=== PATIENT | female | born 1955 | race Caucasian/White ===

== ENCOUNTER 2017-03-23 20:31 | Emergency (ER) | payer BC ==
[2017-03-23 20:46] VITALS: BP 156/78
--- NOTE | 2017-03-23 20:53 | EDM.PDOC ---
ED HPI GENERAL MEDICAL PROBLEM - General Chief Complaint: Abdominal Pain Stated Complaint: ABDOMINAL PAIN Time Seen by Provider: 03/23/17 20:52 Source of Information: Reports: Patient History Limitations: Reports: No Limitations - History of Present Illness INITIAL COMMENTS - FREE TEXT/NARRATIVE: 61-year-old female presents to the ED with acute onset of right danny-abdominal pain. She states she can feel a lump on her abdomen which she's noted off and on in the past and the pain is directly underneath this. Pain came on about 2 hours ago well standing. Normal supper i.e. a sandwich about 5:30 6:00. Pain is not bad enough to make her vomit. She states that she pushes on it she can walk near normal. She's had no previous abdominal surgery. 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 She used to be on Plavix but is no longer on this. She is only on aspirin. Denies any abdominal wall trauma. Onset: Today Onset Date: 03/23/17 Onset Time: 19:00 Duration: Hour(s): Location: Reports: Abdomen (Right mid hemiabdomen.). Denies: Radiates to Quality: Reports: Ache, Other (Feels a palpable lump in this area and the pain is directly underneath this.) Severity: Moderate (Rates it as 5 out of 10.) Improves with: Reports: Rest Worsens with: Reports: Movement Context: Reports: Other (Came on spontaneously.). Denies: Activity, Exercise, Lifting, Sick Contact, Trauma Associated Symptoms: Reports: No Other Symptoms Treatments BALANCE WEIGHER: Reports: Other (see below) (None.) Right Abdominal Pain Score (Numeric/FACES): 7 - Related Data Allergies Allergy/AdvReac Type Severity Reaction Status Date / Time No Known Allergies Allergy Verified 05/08/14 06:47 Home Meds: Home Meds Calcium Carbonate [Calcium] 600 mg PO DAILY 11/29/14 [History] Fish Oil/[place]-3 Fatty Acids [Fish Oil] 1,200 mg PO DAILY 11/29/14 [History] LORazepam [Ativan] 2 mg PO BEDTIME 11/29/14 [History] Losartan [Cozaar] 50 mg PO DAILY 11/29/14 [History] Multivitamins 1 each PO DAILY 11/29/14 [History] Oxybutynin [Oxybutynin ER] 10 mg PO BID 11/29/14 [History] Perphenazine 16 mg PO BEDTIME 11/29/14 [History] QUEtiapine [SEROquel] 100 mg PO BEDTIME 11/29/14 [History] carBAMazepine [Carbamazepine] 100 mg PO BEDTIME 11/29/14 [History] Aspirin [Halfprin] 81 mg PO DAILY 03/23/17 [History] Methylcellulose [Fiber] 500 mg PO DAILY 03/23/17 [History] atorvaSTATin [Lipitor] 20 mg PO BEDTIME 03/23/17 [History] Past Medical History Genitourinary History: Reports: Other (See Below) (Urge incontinence.) Neurological History: Reports: CVA (With right-sided hemiparesis with persistent weakness particularly lower extremity and upper extremity. Speech is near normal.) Psychiatric History: Reports: Psych Hospitalization(s), Schizophrenia (Fairly patient has a pre-existing psychiatric illness which included auditory hallucinations with a diagnosis of schizophrenia. She is therefore on perphenazine Seroquel and Tegretol for behavioral management.) Social & Family History - Tobacco Use Smoking Status *Q: Current Every Day Smoker Years of Tobacco use: 41 - Recreational Drug Use Recreational Drug Use: No - Living Situation & Occupation Living situation: Reports: Occupation: Disabled ED ROS GENERAL - Review of Systems Review Of Systems: See Below Constitutional: Reports: No Symptoms HEENT: Reports: No Symptoms Respiratory: Reports: No Symptoms Cardiovascular: Reports: No Symptoms Endocrine: Reports: No Symptoms GI/Abdominal: Reports: No Symptoms, Constipation. Denies: Diarrhea : Reports: Incontinence (Urge incontinence.) Skin: Reports: No Symptoms Neurological: Reports: Gait Disturbance Psychiatric: Reports: No Symptoms (Due to previous CVA.) Hematologic/Lymphatic: Reports: No Symptoms ED EXAM, GI/ABD - Physical Exam Exam: See Below Exam Limited By: Other ( does a lot of answering for her questions. She is able to answer most questions but his slow in her speech and responses.) General Appearance: Alert, WD/WN, No Apparent Distress Eyes: Bilateral: Normal Appearance (No jaundice.) Head: Atraumatic, Normocephalic Neck: Normal Inspection, Supple, Non-Tender, Full Range of Motion. No: Lymphadenopathy (R) Respiratory/Chest: No Respiratory Distress, Lungs Clear, Normal Breath Sounds, No Accessory Muscle Use, Respiratory Distress (Mild tachypnea due to anxiety.) Cardiovascular: Normal Peripheral Pulses, Regular Rate, Rhythm, No Edema, No Gallop, No Murmur GI/Abdominal Exam: Normal Bowel Sounds, Soft, Tender (There is a tender area adjacent to the rectus abdominis muscle inferior to the umbilicus just lateral to it with a palpable lump. This is only about 2-1/2 cm in size. It is mild to moderately tender. It has the suggestion of a spigelian hernia. She's had no previous abdominal surgeries. I can palpate stool however throughout the colon underneath this area as well.) Back Exam: Normal Inspection, Full Range of Motion. No: CVA Tenderness (L), CVA Tenderness (R) Extremities: Normal Inspection, Normal Range of Motion, Non-Tender, No Pedal Edema Neurological: Alert, Oriented, CN II-XII Intact, Normal Cognition, Other (She has hyperreflexia on the right side with right-sided weakness of arm and leg i.e. right-sided hemiparesis post CVA 2 years ago.). No: Normal Gait Psychiatric: Flat Affect Skin Exam: Warm, Dry, Intact, Normal Color Course - Vital Signs Last Recorded V/S: Last Vital Signs Temp 36.4 C 03/23/17 20:45 Pulse 80 03/23/17 20:45 Resp 20 03/23/17 20:45 BP 156/78 H 03/23/17 20:45 Pulse Ox 96 03/23/17 20:45 - Orders/Labs/Meds Orders: Active Orders 24 hr Category Date Time Status Peripheral IV Care [RC] . DIRECTED Care 03/23/17 20:57 Active Abdomen Pelvis wo Cont [CT] Stat Exams 03/23/17 20:59 Taken Peripheral IV Insertion Adult [OM.PC] Stat Oth 03/23/17 20:57 Ordered Labs: Laboratory Tests 03/23/17 03/23/17 Range/Units 21:11 21:11 WBC 9.37 (3.98-10.04) K/mm3 RBC 4.29 (3.98-5.22) M/mm3 Hgb 12.9 (11.2-15.7) gm/L Hct 38.9 (34.1-44.9) % MCV 90.7 (79.4-94.8) fl MCH 30.1 (25.6-32.2) pg MCHC 33.2 (32.2-35.5) g/dl RDW Std Deviation 46.2 (36.4-46.3) fL Plt Count 348 (182-369) K/mm3 MPV 9.9 (9.4-12.3) fl Neutrophils % (Manual) 63 H (40-60) % Band Neutrophils % 0 (0-10) % Lymphocytes % (Manual) 24 (20-40) % Atypical Lymphs % 2 % Monocytes % (Manual) 9 (2-10) % Eosinophils % (Manual) 1 (0.7-5.8) % Basophils % (Manual) 1 (0.1-1.2) Platelet Estimate Adequate Plt Morphology Comment Normal RBC Morph Comment Normal Sodium 143 (136-145) mEq/L Potassium 4.3 (3.5-5.1) mEq/L Chloride 107 (98-107) mEq/L Carbon Dioxide 23 (21-32) mEq/L Anion Gap 17.3 H (5-15) BUN 14 (7-18) mg/dL Creatinine 1.4 H (0.55-1.02) mg/dL Est Cr Clr Drug Dosing 33.80 mL/min Estimated GFR (MDRD) 38 (>60) mL/min BUN/Creatinine Ratio 10.0 L (14-18) Glucose 131 H (74-106) mg/dL Calcium 9.7 (8.5-10.1) mg/dL Total Bilirubin 0.2 (0.2-1.0) mg/dL AST 20 (15-37) U/L ALT 34 (14-59) U/L Alkaline Phosphatase 91 (46-116) U/L C-Reactive Protein < 0.2 (<1.0) mg/dL Total Protein 7.2 (6.4-8.2) g/dl Albumin 3.9 (3.4-5.0) g/dl Globulin 3.3 gm/dL Albumin/Globulin Ratio 1.2 (1-2) Amylase 41 (25-115) U/L Meds: Medications Discontinued Medications Generic Name Dose Route Start Last Admin Trade Name Freq PRN Reason Stop Dose Admin Hydromorphone HCl 0.5 mg 03/23/17 20:58 03/23/17 21:21 Dilaudid IVPUSH 03/23/17 20:59 0.5 mg ONETIME ONE Administration Magnesium Citrate 300 ml 03/23/17 22:10 03/23/17 22:23 Citrate Of Magnesia PO 03/23/17 22:11 300 ml ONETIME ONE Administration Magnesium Citrate Confirm 03/23/17 22:28 03/24/17 00:29 Citrate Of Magnesia Administered 03/23/17 22:29 Not Given Dose 296 ml .ROUTE .STK-MED ONE Metoclopramide HCl 7.5 mg 03/23/17 20:58 03/23/17 21:19 Reglan IVPUSH 03/23/17 20:59 7.5 mg ONETIME ONE Administration Sodium Chloride 10 ml 03/23/17 20:57 03/23/17 21:19 Saline Flush FLUSH 10 ml ASDIRECTED PRN Administration Keep Vein Open - Radiology Interpretation Free Text/Narrative:: 7-year-old female presents to the ED with a 2 hour history of a painful lump in her right mid abdomen. This appears to be adjacent to the umbilicus and slightly inferior to it. She states the lump has been there off and on in the past but she is mentioning to the doctor was no positive response. Tonight the pain came on and the pain is directly underneath this area. She can hold onto it and make it feel somewhat better to walk fully erect. On my examination there is approximately a 3 cm rounded mass that is somewhat painful in this area. Says the suspicion of a spiculated hernia. I can also palpate a good deal of stool however throughout the right hemicolon. Bowel gas sounds are normal she 's had no previous abdominal surgery. Decision made to just CT the abdomen and pelvis without contrast to see if I can identify a hernia in this area. In the meantime she will have a IV started. Will receive Dilaudid 0.5 mg IV and Reglan 7.5 mg IV for pain relief. Routine labs and urinalysis ordered. - Re-Assessments/Exams Free Text/Narrative Re-Assessment/Exam: 03/23/17 21:56 CT of the abdomen reveals no evidence of an abdominal wall hernia. There is a small fat-containing umbilical hernia. The entire right hemicolon and most of the transverse colon and descending colon are filled with stool. Therefore the palpable lump that she's experiencing is stool within the right hemicolon as I anticipated clinically. Of note there is also a fairly moderate sized hiatal hernia. Etiology just also comments that there is absent lung markings and small area of the medial basilar right lower lobe could be a pneumomediastinum or chronic pneumothorax. When I look at the CT clearly I do not demonstrate these findings. Treatment will be Citroma 8 ounces mixed with 5 ounces of juice of choice to provide bowel cleanse and then I'm going to suggest she stays on MiraLAX powder 17 g daily as the medication she is on are causing significant constipation problems. Departure - Departure Time of Disposition: 22:11 Disposition: Home, Self-Care 01 Condition: Fair Clinical Impression: Constipation by delayed colonic transit Abdominal pain Qualifiers: Abdominal location: right lower quadrant Qualified Code(s): R10.31 - Right lower quadrant pain - Discharge Information Instructions: Constipation, Adult, [id number], Abdominal Pain, Adult, Easy-to -Read Referrals: Derick Cabrera MD [Primary Care Provider] - Forms: ED Department Discharge Additional Instructions: Evaluation the emergency room tonight in regards to sudden onset of right danny- abdominal pain. This was strong and crampy in nature. Examination showed fairly active bowel sounds throughout the abdomen and palpable: On exam. Because she had felt a lump in this area in the past concern arose for possible hernia of the abdominal wall which would be rare because you've not had any previous abdominal surgeries. Sometimes a spigelian hernia can occur spontaneously. 4 CT of your abdomen was performed without any contrast. It identifies no evidence of an abdominal wall hernia. It does however reveal extensive constipation with stool throughout the entire colon particularly the right hemicolon. Treatment is therefore to take Citroma 10 ounces of medicine with 5-6 ounces of any kind of juice or Gatorade Powerade in the morning. This will take 1-2 hours to work in bowel off work for 5 times to provide bowel cleanse. Try and drink a couple glasses of water over the next hour or 2 after taking the Citroma to act as a flush. After this I would suggest using MiraLAX powder 17 g or 1 scoop every day to try and prevent constipation from occurring. Unfortunately the medications that you take perphenazine and Seroquel are strongly constipating. Follow-up with personal physician if any further problems occur. - My Orders Last 24 Hours: My Active Orders 03/23/17 20:57 Peripheral IV Care [RC] . DIRECTED Peripheral IV Insertion Adult [OM.PC] Stat 03/23/17 20:59 Abdomen Pelvis wo Cont [CT] Stat - Assessment/Plan Last 24 Hours: My Active Orders 03/23/17 20:57 Peripheral IV Care [RC] . DIRECTED Peripheral IV Insertion Adult [OM.PC] Stat 03/23/17 20:59 Abdomen Pelvis wo Cont [CT] Stat
[2017-03-23] MEDS ORDERED: Sodium Chloride 0.9% 10 ML Syringe FLUSH PRN (20:57)
[2017-03-23] MEDS ORDERED: HYDROmorphone 0.5 MG/0.5 ML Syringe IVPUSH ONE (20:58)
[2017-03-23] MEDS ORDERED: Metoclopramide 10 MG/2 ML SDV IVPUSH ONE (20:58)
[2017-03-23] MEDS ORDERED: Magnesium Citrate Solution 296 ML Bottle PO ONE (22:10)
[2017-03-23] MEDS ORDERED: Magnesium Citrate Solution 296 ML Bottle ONE (22:28)
--- NOTE | 2017-03-24 09:18 | CT ---
CT abdomen and pelvis Technique: Multiple axial sections were obtained from above the dome of the diaphragm inferiorly through the pubic symphysis. Intravenous and oral contrast not utilized. Findings: Small low-density lesion identified within the right kidney measuring approximately 7 mm most likely due to small cyst. Kidneys show no abnormal calcifications. Incidental extrarenal pelvis noted on the right side. No ureteral dilatation or ureteral stone is seen. Moderately large hiatal hernia is seen. Small amount of extrapleural air appears to be present next to the hiatal hernia within the right lung base of uncertain etiology. Noncontrast appearance of the liver and spleen appears within normal limits. Gallbladder contains no calcified gallstones. Adrenal glands show no nodule. Pancreas is within normal limits. Aorta shows atherosclerotic calcification which continues into the iliac vessels. No aneurysm is seen. No retroperitoneal adenopathy is identified. Mild increased stool is noted throughout the colon. No pelvic mass or adenopathy is seen. No free fluid or inflammatory change is seen within the abdomen or pelvis. Bone window settings were reviewed which show spondylolisthesis at L5-S1 with severe disc space narrowing at L5-S1. 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 Impression: 1. Small amount of extrapleural air next to a hiatal hernia within the right lung base. Uncertain as to etiology but this is most likely chronic. Limited noncontrast chest CT could be performed in one month to confirm stability. 2. Small cyst within the right kidney. 3. Moderately large hiatal hernia. 4. Increased stool within the colon and other incidental findings. Diagnostic code #3 I agree with preliminary report issued by [employer] ([facility] report finalized on 03/23/17, 11:09 PM Central Time)
== END 2017-03-23 22:29 | disposition home or self-care (01) ==
LOC: JD.ED 20:31
DX: K59.01 Slow transit constipation (principal); F17.210 Nicotine dependence, cigarettes, uncomplicated
CPT/HCPCS: 36415; 74176; 80053; 82150; 85025; 86140; 96374; 96375; 99284; A9270; J1170; J2765; J7050

== ENCOUNTER 2021-02-26 09:14 | Day surgery (SDC) | payer MEDICARE, OTHER ==
[2021-02-26] MEDS: Polymyxin B/Trimethoprim 10 ML Bottle EYELF SCH ×4 (10:36→11:57)
[2021-02-26] MEDS: Brimonidine 0.2% Ophth Soln 5 ML Bottle EYELF SCH ×4 (10:44→11:57)
[2021-02-26] MEDS: Phenylephrine 2.5% Ophth Soln 2 ML Bot EYELF SCH ×6 (10:47→11:39)
[2021-02-26] MEDS: Tropicamide 1% Ophth Soln 15 ML Bottle EYELF SCH ×4 (10:51→11:25)
--- NOTE | 2021-02-26 10:56 | PCM.PREANE ---
Preanesthetic Assessment - Procedure Proposed Procedure: Left Cataract Extraction with IOL. - Anesthesia/Transfusion/Family Hx Anesthesia History: Prior Anesthesia Without Reaction Family History of Anesthesia Reaction: No Transfusion History: No Prior Transfusion(s) Intubation History: Unknown - Review of Systems Pulmonary: No Symptoms (Former Smoker: quit 2014./ETOH: rarely), Cough (dry cough on occasion) Cardiovascular: No Symptoms (Elevated cholesterol, HTN) Gastrointestinal: No Symptoms Neurological: No Symptoms (CVA(2015): right arm and right leg weakness noted still, and speech is still affected a bit.) Other: Reports: Easy Bruising (on plavix since CVA in 2014), Diabetes (borderline), Depression, Anxiety - Physical Assessment NPO Status Date: 02/25/21 NPO Status Time: 22:00 Vital Signs: HR: 90 Sat: 92% B/P: 131/78 Resp: 20 Temp: 98.6 Height: 1.52 m Weight: 56.699 kg ASA Class: 3 Mental Status: Alert & Oriented x3 Airway Class: Mallampati = 2 Dentition: Reports: Dentures (upper and lower) Thyro-Mental Finger Breadths: 3 Mouth Opening Finger Breadths: 3 ROM/Head Extension: Full Lungs: Clear to Auscultation, Normal Respiratory Effort Cardiovascular: Regular Rate, Regular Rhythm, No Murmurs - Allergies Allergies/Adverse Reactions: Allergies Allergy/AdvReac Type Severity Reaction Status Date / Time No Known Allergies Allergy Verified 02/25/21 17:44 - Anesthesia Plan Pre-Op Medication Ordered: None - Acknowledgements Anesthesia Type Planned: MAC Pt an Appropriate Candidate for the Planned Anesthesia: Yes Alternatives and Risks of Anesthesia Discussed w Pt/Guardian: Yes Pt/Guardian Understands and Agrees with Anesthesia Plan: Yes PreAnesthesia Questionnaire Cardiovascular History: Reports: High Cholesterol, Hypertension Gastrointestinal History: Reports: Other (See Below) Other Gastrointestinal History: lump to right abdominal wall past 3 years Genitourinary History: Reports: Other (See Below) (Urge incontinence.) Neurological History: Reports: CVA (With right-sided hemiparesis with persistent weakness particularly lower extremity and upper extremity. Speech is near normal.) Other Neuro History: incontinence urine; left CVA Psychiatric History: Reports: Psych Hospitalization(s), Schizophrenia (Fairly patient has a pre-existing psychiatric illness which included auditory hallucinations with a diagnosis of schizophrenia. She is therefore on perphenazine Seroquel and Tegretol for behavioral management.) - HOME MEDS Home Medications: Home Meds Clopidogrel Bisulfate [Plavix] 02/25/21 [History] LORazepam [Ativan] 02/25/21 [History] Losartan [Cozaar] 02/25/21 [History] Pravastatin [Pravachol] 02/25/21 [History] QUEtiapine [SEROquel] 02/25/21 [History] haloperidoL [Haldol] 02/25/21 [History] - CURRENT (IN HOUSE) MEDS Current Meds: Current Medications Brimonidine Tartrate (Brimonidine 0.2% Ophth Soln 5 Ml Bottle) 0 ml EYELF ASDIRECTED KAYLEY Stop: 02/26/21 23:00 Last Admin: 02/26/21 10:44 Dose: 1 drop Documented by: Cefuroxime Sodium (Cefuroxime 10 Mg/Ml Syringe) 0 mg EYELF ASDIRECTED KAYLEY Stop: 02/26/21 23:00 Lidocaine HCl (Lidocaine 1% Pf 2 Ml Sdv) 0 ml INJECT ASDIRECTED KAYLEY Stop: 02/26/21 23:00 Phenylephrine HCl (Phenylephrine 2.5% Ophth Soln 2 Ml Bot) 0 ml EYELF ASDIRECTED KAYLEY Stop: 02/26/21 23:00 Pilocarpine HCl (Pilocarpine 4% Ophth Soln 15 Ml Bot) 0 ml EYELF ASDIRECTED KAYLEY Stop: 02/26/21 23:00 Polymyxin/Trimethoprim Sulfate (Polymyxin B/Trimethoprim 10 Ml Bottle) 0 ml EYELF ASDIRECTED KAYLEY Stop: 02/26/21 23:00 Last Admin: 02/26/21 10:36 Dose: 1 drop Documented by: Tetracaine HCl (Tetracaine Hcl/Pf 0.5% 4 Ml Bottle) 0 ml EYEBOTH ASDIRECTED KAYLEY Stop: 02/26/21 23:00 Tropicamide (Tropicamide 1% Ophth Soln 15 Ml Bottle) 0 ml EYELF ASDIRECTED KAYLEY Stop: 02/26/21 23:00
[2021-02-26] MEDS: Tetracaine HCl/PF 0.5% 4 ML Bottle EYEBOTH SCH ×3 (11:28→11:44)
[2021-02-26] MEDS: Pilocarpine 4% Ophth Soln 15 ML Bot EYELF SCH ×2 (11:40→11:57)
[2021-02-26] MEDS: Lidocaine 1% PF 2 ML SDV INJECT SCH ×2 (11:40→11:45)
[2021-02-26] MEDS: Cefuroxime 10 MG/ML SYRINGE EYELF SCH ×2 (11:40→11:56)
--- NOTE | 2021-02-26 11:45 | PCM48HPAN ---
Post Anesthesia Note - EVALUATION WITHIN 48HRS OF ANESTHETIC Vital Signs in Normal Range: Yes Patient Participated in Evaluation: Yes Respiratory Function Stable: Yes Airway Patent: Yes Cardiovascular Function Stable: Yes Hydration Status Stable: Yes Pain Control Satisfactory: Yes Nausea and Vomiting Control Satisfactory: Yes Mental Status Recovered: Yes
[2021-02-26 13:00] VITALS: BP 112/90; PULSE 78
== END 2021-02-26 12:10 | disposition home or self-care (01) ==
LOC: JD.SDS 09:14
PROVIDERS: ATTEND Ophthalmology
DX: E11.36 Type 2 diabetes mellitus with diabetic cataract (principal); H25.813 Combined forms of age-related cataract, bilateral; H16.223 Keratoconjunctivitis sicca, not specified as Sjogren's, bilateral; H02.831 Dermatochalasis of right upper eyelid; H02.834 Dermatochalasis of left upper eyelid; F41.9 Anxiety disorder, unspecified; E78.00 Pure hypercholesterolemia, unspecified; I10 Essential (primary) hypertension; Z86.73 Personal history of transient ischemic attack (TIA), and cerebral infarction without residual deficits; Z87.891 Personal history of nicotine dependence; Z79.899 Other long term (current) drug therapy
CPT/HCPCS: 66984; J0697; C1780

== ENCOUNTER 2021-04-09 08:16 | Day surgery (SDC) | payer MEDICARE, OTHER ==
[2021-04-09] MEDS: Polymyxin B/Trimethoprim 10 ML Bottle EYERT SCH ×4 (07:31→09:01)
[2021-04-09] MEDS: Brimonidine 0.2% Ophth Soln 5 ML Bottle EYERT SCH ×4 (07:35→09:01)
[2021-04-09] MEDS: Phenylephrine 2.5% Ophth Soln 2 ML Bot EYERT SCH ×6 (07:39→08:39)
[2021-04-09] MEDS: Tropicamide 1% Ophth Soln 15 ML Bottle EYERT SCH ×3 (07:46→08:11)
[2021-04-09] MEDS: Tetracaine HCl/PF 0.5% 4 ML Bottle EYEBOTH SCH ×4 (08:00→08:46)
[2021-04-09] MEDS: Lidocaine 1% PF 2 ML SDV INJECT SCH ×2 (08:01→08:47)
[2021-04-09] MEDS: Cefuroxime 10 MG/ML SYRINGE EYERT SCH ×2 (08:02→09:00)
[2021-04-09] MEDS: Pilocarpine 4% Ophth Soln 15 ML Bot EYERT SCH ×2 (08:02→09:01)
[2021-04-09 09:47] VITALS: BP 141/79; PULSE 73
== END 2021-04-09 09:13 | disposition home or self-care (01) ==
LOC: JD.SDS 08:16
PROVIDERS: ATTEND Ophthalmology
DX: E11.36 Type 2 diabetes mellitus with diabetic cataract (principal); H25.811 Combined forms of age-related cataract, right eye; F41.9 Anxiety disorder, unspecified; E78.00 Pure hypercholesterolemia, unspecified; F20.9 Schizophrenia, unspecified; I10 Essential (primary) hypertension; Z86.73 Personal history of transient ischemic attack (TIA), and cerebral infarction without residual deficits; Z98.890 Other specified postprocedural states; Z87.891 Personal history of nicotine dependence
CPT/HCPCS: 66984; C1780; J0697

== ENCOUNTER 2023-10-09 18:33 | Emergency (ER) | payer MEDICARE, OTHER ==
[2023-10-09] MEDS: Sodium Chloride 0.9% 1,000 ML IV ONE ×2 (19:28→21:31)
[2023-10-09] MEDS: Sodium Chloride 0.9% 10 ML Syringe FLUSH PRN (19:29)
[2023-10-09 19:36] LABS: BASOPHILS PERCENT AUTO 0.2 % (0.0-1.0); HEMATOCRIT 42.4 % (37.0-47.0); HEMOGLOBIN 14.1 gm/dl (12.0-16.0); IMMATURE GRAN ABSOLUTE AUTO 0.05 K/mm3 (0.00-0.05); IMMATURE GRAN PERCENT AUTO 0.4 % (0.0-0.4); LYMPHOCYTES ABSOLUTE AUTO 0.8 K/mm3 (1.0-4.8); LYMPHOCYTES PERCENT AUTO 7.2 % (24.0-44.0); MEAN CORPUSCULAR HEMOGLOBIN 29.8 pg (28.0-32.0); MEAN CORPUSCULAR HGB CONC 33.3 g/dl (32.0-36.0); MEAN CORPUSCULAR VOLUME 89.6 fl (83.0-99.0); MEAN PLATELET VOLUME 9.9 fl (9.4-12.3); MONOCYTES ABSOLUTE AUTO 1.1 K/mm3 (0.0-0.8); MONOCYTES PERCENT AUTO 9.8 % (0.0-8.0); NEUTROPHILS ABSOLUTE AUTO 9.3 K/mm3 (1.8-7.7); NEUTROPHILS PERCENT AUTO 82.4 % (41.0-71.0); PLATELET COUNT,PLT 309 K/mm3 (150-400); RED BLOOD CELL COUNT 4.73 M/mm3 (4.10-5.30)
[2023-10-09 19:53] LABS: CORONAVIRUS COVID-19 NAA POSITIVE (NEGATIVE); INFLUENZA A NAA NEGATIVE (NEGATIVE); RESPIRATORY SYNCYTIAL VIR NAA NEGATIVE (NEGATIVE)
[2023-10-09 20:00] LABS: A/G RATIO 1.2 (1-2); ALBUMIN 4.1 g/dl (3.4-5.0); ANION GAP 18.5 (5-15); BILIRUBIN TOTAL 0.6 mg/dL (0.2-1.0); BUN/CREATININE RATIO 16.4 (14-18); CALCIUM 9.9 mg/dL (8.5-10.1); CREATININE 2.2 mg/dL (0.55-1.02); EST CRCL DRUG DOSING (CG) 18.72 mL/min; MAGNESIUM 2.2 mg/dL (1.8-2.4); POTASSIUM,K 3.5 mEq/L (3.5-5.1); PROTEIN TOTAL,TP 7.6 g/dl (6.4-8.2)
[2023-10-09 20:03] LABS: LACTIC ACID 1.3 mmol/L (0.4-2.0)
[2023-10-09 23:50] VITALS: BP 142/74; PULSE 98
== END 2023-10-09 22:15 | disposition home or self-care (01) ==
LOC: JD.ED 18:33
DX: U07.1 COVID-19 (principal); J12.82 Pneumonia due to coronavirus disease 2019; R19.7 Diarrhea, unspecified; E86.0 Dehydration; I10 Essential (primary) hypertension; E78.00 Pure hypercholesterolemia, unspecified; Z79.899 Other long term (current) drug therapy
CPT/HCPCS: 0241U; 36415; 71045; 80053; 83605; 83735; 85025; 87040; 96360; 96361; 99285; J3490; J7030

== ENCOUNTER 2023-10-13 09:17 | Inpatient (IN) | payer MEDICARE, OTHER ==
[2023-10-13] MEDS: Dextrose 5%-Lactated Ringers 1,000 ML IV SCH (10:27)
[2023-10-13] MEDS: Acetaminophen 325 MG Tab PO ONE (10:27)
[2023-10-13 10:33] LABS: BASOPHILS PERCENT AUTO 0.4 % (0.0-1.0); HEMOGLOBIN 13.6 gm/dl (12.0-16.0); IMMATURE GRAN ABSOLUTE AUTO 0.04 K/mm3 (0.00-0.05); IMMATURE GRAN PERCENT AUTO 0.8 % (0.0-0.4); LYMPHOCYTES ABSOLUTE AUTO 0.8 K/mm3 (1.0-4.8); MEAN CORPUSCULAR HEMOGLOBIN 29.8 pg (28.0-32.0); MEAN CORPUSCULAR VOLUME 87.7 fl (83.0-99.0); MEAN PLATELET VOLUME 10.4 fl (9.4-12.3); MONOCYTES ABSOLUTE AUTO 0.5 K/mm3 (0.0-0.8); MONOCYTES PERCENT AUTO 10.6 % (0.0-8.0); NEUTROPHILS ABSOLUTE AUTO 3.5 K/mm3 (1.8-7.7); NEUTROPHILS PERCENT AUTO 72.2 % (41.0-71.0); PLATELET COUNT,PLT 251 K/mm3 (150-400); RED BLOOD CELL COUNT 4.56 M/mm3 (4.10-5.30); WHITE BLOOD CELL COUNT,WBC 4.89 K/mm3 (3.9-11.3)
[2023-10-13 11:18] LABS: LACTIC ACID 1.2 mmol/L (0.4-2.0)
[2023-10-13 11:23] LABS: A/G RATIO 0.9 (1-2); ALBUMIN 3.1 g/dl (3.4-5.0); ANION GAP 14.9 (5-15); BILIRUBIN TOTAL 0.7 mg/dL (0.2-1.0); BUN/CREATININE RATIO 14.7 (14-18); C-REACTIVE PROTEIN 2.53 mg/dL (<0.30); CALCIUM 8.9 mg/dL (8.5-10.1); CREATININE 1.7 mg/dL (0.55-1.02); EST CRCL DRUG DOSING (CG) 23.07 mL/min; MAGNESIUM 1.7 mg/dL (1.8-2.4); PROTEIN TOTAL,TP 6.7 g/dl (6.4-8.2)
[2023-10-13 11:24] LABS: CORONAVIRUS COVID-19 NAA POSITIVE (NEGATIVE); INFLUENZA A NAA NEGATIVE (NEGATIVE); RESPIRATORY SYNCYTIAL VIR NAA NEGATIVE (NEGATIVE)
[2023-10-13 11:25] LABS: POTASSIUM,K 3.9 mEq/L (3.5-5.1)
[2023-10-13] MEDS ORDERED: Sodium Chloride 0.9% 10 ML Syringe FLUSH PRN (12:29)
[2023-10-13] MEDS ORDERED: Sodium Chloride 0.9% 100 ML IV SCH (12:30)
[2023-10-13] MEDS: Iopamidol 755 Mg/ML 100 ML Bottle IVPUSH ONE (12:46)
[2023-10-13] MEDS: Lactated Ringers 1,000 ML IV SCH (16:06)
[2023-10-13] MEDS ORDERED: Lactated Ringers 1,000 ML IV SCH (20:00)
[2023-10-13] MEDS: Oxybutynin 5 MG Tab.ER PO SCH (21:17)
[2023-10-13] MEDS: QUEtiapine 100 MG Tab PO SCH (21:17)
[2023-10-13] MEDS: Dexamethasone 6 MG TABLET PO SCH (21:17)
[2023-10-13 22:44] LABS: APPEARANCE,URINE CLEAR (Clear); BILIRUBIN,URINE NEGATIVE (Negative); COLOR,URINE YELLOW (Yellow); GLUCOSE,URINE NEGATIVE (Negative); KETONES,URINE NEGATIVE (Negative); LEUKOCYTE ESTERASE,URINE NEGATIVE (Negative); NITRITE,URINE NEGATIVE (Negative); OCCULT BLOOD,URINE TRACE-LYSED (Negative); PH,URINE 6.5 (5.0-8.0); PROTEIN,URINE 1+ (Negative); UROBILINOGEN,URINE 0.2 (0.2-1.0)
[2023-10-13 23:57] LABS: EPITHELIAL CELLS,URINE NOT SEEN /hpf (0-5); RBC,URINE NOT SEEN /hpf (0-5); WBC,URINE 0-5 /hpf (0-5)
[2023-10-13 23:58] LABS: BACTERIA,URINE RARE /hpf (FEW); MUCUS,URINE NOT SEEN /hpf (FEW)
[2023-10-14 04:53] LABS: BASOPHILS PERCENT AUTO 0.1 % (0.0-1.0); HEMATOCRIT 35.4 % (37.0-47.0); HEMOGLOBIN 11.9 gm/dl (12.0-16.0); IMMATURE GRAN ABSOLUTE AUTO 0.05 K/mm3 (0.00-0.05); IMMATURE GRAN PERCENT AUTO 0.7 % (0.0-0.4); LYMPHOCYTES ABSOLUTE AUTO 0.8 K/mm3 (1.0-4.8); LYMPHOCYTES PERCENT AUTO 11.4 % (24.0-44.0); MEAN CORPUSCULAR HEMOGLOBIN 29.8 pg (28.0-32.0); MEAN CORPUSCULAR HGB CONC 33.6 g/dl (32.0-36.0); MEAN CORPUSCULAR VOLUME 88.7 fl (83.0-99.0); MEAN PLATELET VOLUME 10.1 fl (9.4-12.3); MONOCYTES ABSOLUTE AUTO 0.4 K/mm3 (0.0-0.8); MONOCYTES PERCENT AUTO 5.3 % (0.0-8.0); NEUTROPHILS ABSOLUTE AUTO 5.6 K/mm3 (1.8-7.7); NEUTROPHILS PERCENT AUTO 82.5 % (41.0-71.0); PLATELET COUNT,PLT 200 K/mm3 (150-400); RED BLOOD CELL COUNT 3.99 M/mm3 (4.10-5.30); WHITE BLOOD CELL COUNT,WBC 6.84 K/mm3 (3.9-11.3)
[2023-10-14 05:34] LABS: A/G RATIO 0.9 (1-2); ALBUMIN 2.6 g/dl (3.4-5.0); ANION GAP 15.5 (5-15); BILIRUBIN TOTAL 0.5 mg/dL (0.2-1.0); BUN/CREATININE RATIO 17.1 (14-18); CALCIUM 8.5 mg/dL (8.5-10.1); CREATININE 1.4 mg/dL (0.55-1.02); EST CRCL DRUG DOSING (CG) 28.01 mL/min; POTASSIUM,K 3.5 mEq/L (3.5-5.1); PROTEIN TOTAL,TP 5.4 g/dl (6.4-8.2)
[2023-10-14] MEDS ORDERED: Pravastatin 20 MG Tab PO SCH (09:00)
[2023-10-14] MEDS: Clopidogrel 75 MG Tab PO SCH (10:01)
[2023-10-14] MEDS: Enoxaparin 30 MG/0.3 ML Syringe SUBCUT SCH (10:01)
[2023-10-14] MEDS: Magnesium Sulfate/Water 2 GM in Premix Bag 1 BAG IV ONE (13:10)
[2023-10-14] MEDS: LORazepam 1 MG Tab PO SCH (22:44)
[2023-10-14] MEDS: Haloperidol 1 MG Tab PO SCH (22:45)
[2023-10-14] MEDS: Acetaminophen 325 MG Tab PO PRN (23:24)
[2023-10-15 06:01] LABS: BASOPHILS PERCENT AUTO 0.1 % (0.0-1.0); HEMATOCRIT 33.2 % (37.0-47.0); HEMOGLOBIN 11.2 gm/dl (12.0-16.0); IMMATURE GRAN ABSOLUTE AUTO 0.07 K/mm3 (0.00-0.05); IMMATURE GRAN PERCENT AUTO 0.9 % (0.0-0.4); LYMPHOCYTES ABSOLUTE AUTO 1.4 K/mm3 (1.0-4.8); LYMPHOCYTES PERCENT AUTO 18.7 % (24.0-44.0); MEAN CORPUSCULAR HEMOGLOBIN 29.3 pg (28.0-32.0); MEAN CORPUSCULAR HGB CONC 33.7 g/dl (32.0-36.0); MEAN CORPUSCULAR VOLUME 86.9 fl (83.0-99.0); MEAN PLATELET VOLUME 10.2 fl (9.4-12.3); MONOCYTES ABSOLUTE AUTO 0.6 K/mm3 (0.0-0.8); MONOCYTES PERCENT AUTO 7.5 % (0.0-8.0); NEUTROPHILS ABSOLUTE AUTO 5.4 K/mm3 (1.8-7.7); NEUTROPHILS PERCENT AUTO 72.8 % (41.0-71.0); PLATELET COUNT,PLT 256 K/mm3 (150-400); RED BLOOD CELL COUNT 3.82 M/mm3 (4.10-5.30); WHITE BLOOD CELL COUNT,WBC 7.45 K/mm3 (3.9-11.3)
[2023-10-15 06:31] LABS: ANION GAP 15.2 (5-15); C-REACTIVE PROTEIN 2.19 mg/dL (<0.30); CALCIUM 8.2 mg/dL (8.5-10.1); CREATININE 1.3 mg/dL (0.55-1.02); EST CRCL DRUG DOSING (CG) 30.16 mL/min; POTASSIUM,K 3.2 mEq/L (3.5-5.1)
[2023-10-15] MEDS: Polyethylene Glycol 3350 Powder 17 GM Packet PO SCH (09:52)
[2023-10-16 06:10] LABS: BASOPHILS PERCENT AUTO 0.1 % (0.0-1.0); HEMATOCRIT 35.7 % (37.0-47.0); HEMOGLOBIN 11.8 gm/dl (12.0-16.0); IMMATURE GRAN ABSOLUTE AUTO 0.13 K/mm3 (0.00-0.05); IMMATURE GRAN PERCENT AUTO 1.7 % (0.0-0.4); LYMPHOCYTES PERCENT AUTO 13.3 % (24.0-44.0); MEAN CORPUSCULAR HEMOGLOBIN 29.6 pg (28.0-32.0); MEAN CORPUSCULAR HGB CONC 33.1 g/dl (32.0-36.0); MEAN CORPUSCULAR VOLUME 89.5 fl (83.0-99.0); MEAN PLATELET VOLUME 10.2 fl (9.4-12.3); MONOCYTES ABSOLUTE AUTO 0.7 K/mm3 (0.0-0.8); NEUTROPHILS ABSOLUTE AUTO 5.7 K/mm3 (1.8-7.7); NEUTROPHILS PERCENT AUTO 75.9 % (41.0-71.0); PLATELET COUNT,PLT 298 K/mm3 (150-400); RED BLOOD CELL COUNT 3.99 M/mm3 (4.10-5.30); WHITE BLOOD CELL COUNT,WBC 7.57 K/mm3 (3.9-11.3)
[2023-10-16 06:37] LABS: ANION GAP 14.3 (5-15); BUN/CREATININE RATIO 24.6 (14-18); CALCIUM 8.7 mg/dL (8.5-10.1); CREATININE 1.3 mg/dL (0.55-1.02); EST CRCL DRUG DOSING (CG) 30.16 mL/min; MAGNESIUM 2.1 mg/dL (1.8-2.4); POTASSIUM,K 3.3 mEq/L (3.5-5.1)
[2023-10-16] MEDS: Docusate Sodium 100 MG Cap PO SCH (09:10)
[2023-10-16] MEDS ORDERED: Potassium Chloride 20 MEQ in Dextrose 5% in Water 1,000 ML IV SCH (12:45)
[2023-10-16] MEDS: Potassium Chloride 20 MEQ Tab.ER PO ONE (13:44)
[2023-10-16] MEDS: Dextrose 5% in Water 1,000 ML IV SCH (13:45)
[2023-10-17 05:57] LABS: BASOPHILS PERCENT AUTO 0.1 % (0.0-1.0); HEMATOCRIT 35.6 % (37.0-47.0); IMMATURE GRAN ABSOLUTE AUTO 0.17 K/mm3 (0.00-0.05); IMMATURE GRAN PERCENT AUTO 1.5 % (0.0-0.4); LYMPHOCYTES ABSOLUTE AUTO 1.3 K/mm3 (1.0-4.8); LYMPHOCYTES PERCENT AUTO 11.5 % (24.0-44.0); MEAN CORPUSCULAR HEMOGLOBIN 29.7 pg (28.0-32.0); MEAN CORPUSCULAR HGB CONC 33.7 g/dl (32.0-36.0); MEAN CORPUSCULAR VOLUME 88.1 fl (83.0-99.0); MEAN PLATELET VOLUME 10.4 fl (9.4-12.3); MONOCYTES ABSOLUTE AUTO 0.7 K/mm3 (0.0-0.8); MONOCYTES PERCENT AUTO 5.9 % (0.0-8.0); NEUTROPHILS ABSOLUTE AUTO 9.3 K/mm3 (1.8-7.7); PLATELET COUNT,PLT 332 K/mm3 (150-400); RED BLOOD CELL COUNT 4.04 M/mm3 (4.10-5.30); WHITE BLOOD CELL COUNT,WBC 11.41 K/mm3 (3.9-11.3)
[2023-10-17 06:14] LABS: ANION GAP 15.5 (5-15); C-REACTIVE PROTEIN 3.21 mg/dL (<0.30); CALCIUM 8.5 mg/dL (8.5-10.1); CREATININE 1.2 mg/dL (0.55-1.02); EST CRCL DRUG DOSING (CG) 32.68 mL/min; MAGNESIUM 1.8 mg/dL (1.8-2.4); POTASSIUM,K 3.5 mEq/L (3.5-5.1)
[2023-10-17] MEDS: Losartan 50 MG Tab PO SCH (10:15)
[2023-10-17] MEDS: Potassium Chloride 20 MEQ Tab.ER PO ONE (20:26)
[2023-10-17] MEDS: Metoprolol Tartrate 25 MG Tab PO SCH (20:26)
[2023-10-17] MEDS: Magnesium Oxide 400 MG Tab PO ONE (20:28)
[2023-10-18 05:49] LABS: BASOPHILS PERCENT AUTO 0.3 % (0.0-1.0); HEMATOCRIT 40.7 % (37.0-47.0); HEMOGLOBIN 13.4 gm/dl (12.0-16.0); IMMATURE GRAN ABSOLUTE AUTO 0.27 K/mm3 (0.00-0.05); IMMATURE GRAN PERCENT AUTO 2.3 % (0.0-0.4); LYMPHOCYTES ABSOLUTE AUTO 1.5 K/mm3 (1.0-4.8); LYMPHOCYTES PERCENT AUTO 12.5 % (24.0-44.0); MEAN CORPUSCULAR HEMOGLOBIN 29.6 pg (28.0-32.0); MEAN CORPUSCULAR HGB CONC 32.9 g/dl (32.0-36.0); MEAN CORPUSCULAR VOLUME 89.8 fl (83.0-99.0); MONOCYTES ABSOLUTE AUTO 0.8 K/mm3 (0.0-0.8); MONOCYTES PERCENT AUTO 6.3 % (0.0-8.0); NEUTROPHILS ABSOLUTE AUTO 9.3 K/mm3 (1.8-7.7); NEUTROPHILS PERCENT AUTO 78.6 % (41.0-71.0); PLATELET COUNT,PLT 415 K/mm3 (150-400); RED BLOOD CELL COUNT 4.53 M/mm3 (4.10-5.30); WHITE BLOOD CELL COUNT,WBC 11.82 K/mm3 (3.9-11.3)
[2023-10-18 06:26] LABS: ANION GAP 14.6 (5-15); C-REACTIVE PROTEIN 2.72 mg/dL (<0.30); CALCIUM 9.2 mg/dL (8.5-10.1); CREATININE 1.4 mg/dL (0.55-1.02); EST CRCL DRUG DOSING (CG) 28.01 mL/min; MAGNESIUM 2.2 mg/dL (1.8-2.4); PHOSPHORUS 3.4 mg/dL (2.6-4.7); POTASSIUM,K 4.6 mEq/L (3.5-5.1)
[2023-10-18] MEDS: Enoxaparin 40 MG/0.4 ML Syringe SUBCUT SCH (09:42)
[2023-10-18] MEDS: Losartan 25 MG Tab PO SCH (09:42)
[2023-10-18] MEDS: Piperacillin/Tazobactam 4.5 GM in Sodium Chloride 0.9% 100 ML IV ONE (20:07)
[2023-10-18] MEDS: Dextrose 5% in Water 1,000 ML IV SCH (20:07)
[2023-10-19] MEDS: Piperacillin/Tazobactam 4.5 GM in Sodium Chloride 0.9% 100 ML IV SCH (03:22)
[2023-10-19 04:42] LABS: BASOPHILS PERCENT AUTO 0.2 % (0.0-1.0); EOSINOPHILS PERCENT AUTO 0.1 % (0.0-6.0); HEMATOCRIT 40.4 % (37.0-47.0); HEMOGLOBIN 13.2 gm/dl (12.0-16.0); IMMATURE GRAN ABSOLUTE AUTO 0.24 K/mm3 (0.00-0.05); IMMATURE GRAN PERCENT AUTO 2.4 % (0.0-0.4); LYMPHOCYTES ABSOLUTE AUTO 1.5 K/mm3 (1.0-4.8); LYMPHOCYTES PERCENT AUTO 15.1 % (24.0-44.0); MEAN CORPUSCULAR HEMOGLOBIN 29.8 pg (28.0-32.0); MEAN CORPUSCULAR HGB CONC 32.7 g/dl (32.0-36.0); MEAN CORPUSCULAR VOLUME 91.2 fl (83.0-99.0); MEAN PLATELET VOLUME 10.2 fl (9.4-12.3); MONOCYTES ABSOLUTE AUTO 0.6 K/mm3 (0.0-0.8); MONOCYTES PERCENT AUTO 6.1 % (0.0-8.0); NEUTROPHILS ABSOLUTE AUTO 7.6 K/mm3 (1.8-7.7); NEUTROPHILS PERCENT AUTO 76.1 % (41.0-71.0); PLATELET COUNT,PLT 484 K/mm3 (150-400); RED BLOOD CELL COUNT 4.43 M/mm3 (4.10-5.30)
[2023-10-19 04:59] LABS: ANION GAP 17.1 (5-15); BUN/CREATININE RATIO 21.9 (14-18); CALCIUM 8.9 mg/dL (8.5-10.1); CREATININE 1.6 mg/dL (0.55-1.02); EST CRCL DRUG DOSING (CG) 24.51 mL/min; POTASSIUM,K 4.1 mEq/L (3.5-5.1)
[2023-10-19] MEDS: Enoxaparin 30 MG/0.3 ML Syringe SUBCUT SCH (08:25)
[2023-10-20 04:54] LABS: HEMATOCRIT 39.2 % (37.0-47.0); HEMOGLOBIN 12.4 gm/dl (12.0-16.0); MEAN CORPUSCULAR HGB CONC 31.6 g/dl (32.0-36.0); MEAN CORPUSCULAR VOLUME 91.6 fl (83.0-99.0); MEAN PLATELET VOLUME 10.2 fl (9.4-12.3); PLATELET COUNT,PLT 531 K/mm3 (150-400); RED BLOOD CELL COUNT 4.28 M/mm3 (4.10-5.30); WHITE BLOOD CELL COUNT,WBC 11.54 K/mm3 (3.9-11.3)
[2023-10-20 05:18] LABS: ANION GAP 15.6 (5-15); BUN/CREATININE RATIO 16.8 (14-18); CALCIUM 8.9 mg/dL (8.5-10.1); CREATININE 1.9 mg/dL (0.55-1.02); EST CRCL DRUG DOSING (CG) 20.64 mL/min; POTASSIUM,K 3.6 mEq/L (3.5-5.1)
[2023-10-20] MEDS: Dextrose 5% in Water 1,000 ML IV SCH (13:50)
[2023-10-20] MEDS: Potassium Chloride 20 MEQ Tab.ER PO ONE (20:59)
[2023-10-21 05:27] LABS: ANION GAP 16.3 (5-15); BUN/CREATININE RATIO 13.2 (14-18); CALCIUM 9.2 mg/dL (8.5-10.1); CREATININE 1.9 mg/dL (0.55-1.02); EST CRCL DRUG DOSING (CG) 20.64 mL/min; MAGNESIUM 2.3 mg/dL (1.8-2.4); PHOSPHORUS 2.3 mg/dL (2.6-4.7); POTASSIUM,K 3.3 mEq/L (3.5-5.1)
[2023-10-21 05:39] LABS: HEMATOCRIT 40.1 % (37.0-47.0); HEMOGLOBIN 13.1 gm/dl (12.0-16.0); MEAN CORPUSCULAR HGB CONC 32.7 g/dl (32.0-36.0); MEAN CORPUSCULAR VOLUME 91.8 fl (83.0-99.0); MEAN PLATELET VOLUME 10.3 fl (9.4-12.3); PLATELET COUNT,PLT 583 K/mm3 (150-400); RED BLOOD CELL COUNT 4.37 M/mm3 (4.10-5.30); WHITE BLOOD CELL COUNT,WBC 17.17 K/mm3 (3.9-11.3)
[2023-10-21 11:15] LABS: C-REACTIVE PROTEIN 20.03 mg/dL (<0.30); TSH 1.351 uIU/mL (0.358-3.74)
[2023-10-21] MEDS: Potassium Phosphates 30 MMOLE in Sodium Chloride 0.9% 500 ML IV ONE (12:15)
[2023-10-21 15:50] VITALS: BP 139/95
[2023-10-21] MEDS: Acetaminophen 650 MG Supp RECTAL PRN (16:18)
[2023-10-21 18:10] VITALS: PULSE 100
[2023-10-21] MEDS ORDERED: Dextrose 5% in Water 1,000 ML IV SCH (18:45)
[2023-10-21] MEDS: VANCOmycin 1.25 GM/250 ML 1.25 GM in Premix Bag 1 BAG IV ONE (19:17)
[2023-10-21] MEDS: Acetaminophen 650 MG Supp RECTAL ONE (19:17)
== END 2023-10-21 19:45 | DRG 177 ==
LOC: JD.ED 09:17 → JD.MS 17:05
PROVIDERS: ADMIT Family Medicine; ATTEND Family Medicine
DX: U07.1 COVID-19 (principal); I21.4 Non-ST elevation (NSTEMI) myocardial infarction; J96.01 Acute respiratory failure with hypoxia; R79.1 Abnormal coagulation profile; R79.89 Other specified abnormal findings of blood chemistry; R19.7 Diarrhea, unspecified; J18.9 Pneumonia, unspecified organism; J21.9 Acute bronchiolitis, unspecified; N17.9 Acute kidney failure, unspecified; E87.1 Hypo-osmolality and hyponatremia; R47.01 Aphasia; E87.6 Hypokalemia; R53.1 Weakness; K44.9 Diaphragmatic hernia without obstruction or gangrene; E87.8 Other disorders of electrolyte and fluid balance, not elsewhere classified; R33.9 Retention of urine, unspecified; I10 Essential (primary) hypertension; F20.9 Schizophrenia, unspecified; E86.0 Dehydration; E78.00 Pure hypercholesterolemia, unspecified; E83.42 Hypomagnesemia; Z98.49 Cataract extraction status, unspecified eye; Z86.73 Personal history of transient ischemic attack (TIA), and cerebral infarction without residual deficits; Z79.02 Long term (current) use of antithrombotics/antiplatelets; Z79.899 Other long term (current) drug therapy
CPT/HCPCS: 0241U; 36415; 51701; 51702; 51798; 70450; 71045; 71046; 71250; 71275; 74176; 80048; 80053; 81001; 83605; 83735; 83880; 83935; 84100; 84443; 84484; 85025; 85027; 85379; 86140; 87040; 87641; 92610; 93005; 94760; 94761; 96360; 96361; 97110; 97161; 99285; 93010; 99284; A9270-GY; C1758; J1650; J2543; J3372; J3475; J3490; J7040; J7060; J7120; J7121; J8540; Q9967

== ENCOUNTER 2024-09-26 11:02 | Day surgery (SDC) | payer MEDICARE, OTHER ==
[~2024-09-26 11:02] MED LIST: Lactated Ringers 1,000 ML IV SCH; Sodium Chloride 0.9% 10 ML Syringe FLUSH PRN; Sodium Chloride 0.9% 10 ML Syringe FLUSH SCH
[2024-09-26] MEDS: Lactated Ringers 1,000 ML IV SCH (11:30)
[2024-09-26] MEDS ORDERED: Propofol 200 MG/20 ML SDV ONE ×2 (13:15→14:25)
[2024-09-26] MEDS ORDERED: EPINEPHrine 1 MG/ML SDV ONE (13:21)
[2024-09-26] MEDS ORDERED: dexmedeTOMIDine HCl 200 MCG/2 ML SDV ONE (13:41)
[2024-09-26] MEDS: Lidocaine 1% with EPINEPHrine 1:100,000 20 ML MDV ONE (13:45)
[2024-09-26] MEDS: Ondansetron 4 MG/2 ML SDV IVPUSH ONE (14:54)
[2024-09-26 16:30] VITALS: BP 128/69; PULSE 68
== END 2024-09-26 16:15 | disposition home or self-care (01) ==
LOC: JD.SDS 11:02
PROVIDERS: ATTEND Surgery
DX: D12.3 Benign neoplasm of transverse colon (principal); D12.4 Benign neoplasm of descending colon; K63.89 Other specified diseases of intestine; K29.50 Unspecified chronic gastritis without bleeding; C44.519 Basal cell carcinoma of skin of other part of trunk; K44.9 Diaphragmatic hernia without obstruction or gangrene; K57.30 Diverticulosis of large intestine without perforation or abscess without bleeding; K64.8 Other hemorrhoids; K22.2 Esophageal obstruction; I10 Essential (primary) hypertension; D50.9 Iron deficiency anemia, unspecified; Z86.73 Personal history of transient ischemic attack (TIA), and cerebral infarction without residual deficits; Z79.02 Long term (current) use of antithrombotics/antiplatelets; Z79.899 Other long term (current) drug therapy
CPT/HCPCS: 11104; 43239; 45380; J0171; J2004; J2405; J2704; J7120; 00813; 88305; 88342; J3490